=== PATIENT | female | born 1940 | race Caucasian/White ===

== ENCOUNTER 2017-07-21 12:54 | Outpatient (CLI) | END 2017-07-21 12:55 | disposition home or self-care (01) | LOC: LAB 12:54 | PROVIDERS: ATTEND Family Medicine | DX: E11.9 Type 2 diabetes mellitus without complications (principal); N18.9 Chronic kidney disease, unspecified | CPT/HCPCS: 36415; 80053; 83036; 85025 ==

== ENCOUNTER 2017-11-16 10:09 | Outpatient (CLI) | END 2017-11-16 10:10 | disposition home or self-care (01) | LOC: FCC-LAB 10:09 | PROVIDERS: ATTEND Family Medicine | DX: E11.9 Type 2 diabetes mellitus without complications (principal); H34.8110 Central retinal vein occlusion, right eye, with macular edema; I73.9 Peripheral vascular disease, unspecified; E11.51 Type 2 diabetes mellitus with diabetic peripheral angiopathy without gangrene; E08.33 Diabetes mellitus due to underlying condition with moderate nonproliferative diabetic retinopathy; H26.9 Unspecified cataract; Z68.41 Body mass index [BMI] 40.0-44.9, adult; E55.9 Vitamin D deficiency, unspecified; E78.5 Hyperlipidemia, unspecified | CPT/HCPCS: 36415; 83037 ==